=== PATIENT | female | born 2000 | race Hispanic/Latino ===

== ENCOUNTER 2024-05-28 11:32 | Emergency (ER) | payer SELFPAY ==
[2024-05-28] MEDS ORDERED: Ketorolac Tromethamine 30 MG (1 mL) VIAL ONE (11:52)
[2024-05-28] MEDS ORDERED: Amoxicillin/Potassium Clav 875 MG TAB ONE (11:52)
== END 2024-05-28 12:30 | disposition home or self-care (01) ==
LOC: ERS 11:32
DX: K04.7 Periapical abscess without sinus (principal)
CPT/HCPCS: 96372; 99282; J1885